=== PATIENT | female | born 1980 | race Caucasian/White ===

== ENCOUNTER 2024-05-18 00:30 | Emergency (ER) | payer OTHER, SELFPAY ==
[2024-05-18 00:34] VITALS: BP 176/114; PULSE 92; RESP 16; TEMP 36.8; O2SAT 94; BMI 35.2
--- NOTE | 2024-05-18 00:40 | ED.GENADULT ---
HPI - General Adult General Chief complaint: Ear/Nose/Throat Problem Stated complaint: R ear infection Time Seen by Provider: 05/18/24 00:40 History of Present Illness HPI narrative: R ear pain, started this afternoon with sinus pressure. as the night has gone on the pain has gotten worse, ringing in ear. feels plugged. 43-year-old woman presenting to the emergency department with concern of potential ear infection. Started to have increased sinus pressure today and increasing pain particularly in her right ear. She has noted some ringing. Feels generally plugged. Not had a fever. No drainage. Not describing sore throat. Related Data Home Medications ?Medication ?Instructions ?Recorded ?Confirmed aspirin 325 mg capsule 325 mg PO DAILY 05/18/24 05/18/24 atorvastatin 80 mg tablet 80 mg PO DAILY 05/18/24 05/18/24 doxepin 10 mg capsule 10 mg PO QPM 05/18/24 05/18/24 fluticasone 500 mcg-salmeterol 50 inhalation 05/18/24 mcg/dose blistr powdr for inhalation levonorgestrel-ethinyl estradiol tab PO 05/18/24 0.1 mg-20 mcg tablet (Vienva) losartan 50 mg tablet 50 mg PO DAILY 05/18/24 05/18/24 montelukast 10 mg tablet 10 mg PO DAILY 05/18/24 05/18/24 propranolol 60 mg capsule,24 60 mg PO DAILY 05/18/24 05/18/24 hr,extended release Previous Rx's ?Medication ?Instructions ?Recorded amoxicillin 875 mg tablet 875 mg PO BID 12 days #24 tabs 05/18/24 Allergies Allergy/AdvReac Type Severity Reaction Status Date / Time azithromycin (From Zithromax) Allergy Verified 05/18/24 00:41 cephalexin (From Keflex) Allergy Verified 05/18/24 00:41 doxycycline Allergy Verified 05/18/24 00:41 guaifenesin Allergy Verified 05/18/24 00:41 Review of Systems Status of ROS: Reports: 6 or more systems reviewed and unremarkable except as noted in History and below [facility] Social History Smoking Status: Never smoker Do you use any of these nicotine containing products: None How often do you have a drink containing alcohol: never AUDIT-C Alcohol total score: 0 Non-prescribed substance use: denies use Exam Narrative: Exam Narrative: Pleasant. NAD. Is congested the nasopharynx. Little sore to palpation maxillary sinuses. Left TM is full; right TM is distended, deformed pink dulled. Oropharynx unremarkable. Breathing easily lungs appear to be clear. No cervical lymphadenopathy. Const: Vital Signs, click to edit/add: Vital Signs - 24 hr 05/18/24 00:34 Temperature 98.3 F Pulse Rate [Pulse Oximeter] 92 Respiratory Rate 16 Blood Pressure [Ri ght Upper Arm] 176/114 H Pulse Oximetry 94 Oxygen Delivery Me thod Room Air Documenting provider has reviewed patient's vital signs: yes Course Vital Signs Vital signs: Initial Vital Signs Temperature 98.3 F 05/18/24 00:34 Temperature Source Temporal Artery Scan 05/18/24 00:34 Pulse Rate 92 05/18/24 00:34 Respiratory Rate 16 05/18/24 00:34 Blood Pressure 176/114 H 05/18/24 00:34 Blood Pressure Mean 134 H 05/18/24 00:34 Blood Pressure Position Supine 05/18/24 00:34 Pulse Oximetry 94 05/18/24 00:34 Oxygen Delivery Method Room Air 05/18/24 00:34 Vital Signs Temperature 98.3 F 05/18/24 00:34 Pulse Rate 92 05/18/24 00:34 Respiratory Rate 16 05/18/24 00:34 Blood Pressure 176/114 H 05/18/24 00:34 Pulse Oximetry 94 05/18/24 00:34 Oxygen Delivery Method Room Air 05/18/24 00:34 Temperature 98.3 F 05/18/24 00:34 Pulse Rate 92 05/18/24 00:34 Respiratory Rate 16 05/18/24 00:34 Blood Pressure 176/114 H 05/18/24 00:34 Pulse Oximetry 94 05/18/24 00:34 Oxygen Delivery Method Room Air 05/18/24 00:34 Medical Decision Making MDM Narrative Medical decision making narrative: Symptoms seem primarily related to congestion due to duration. Would try to treat the nasopharyngeal congestion and improve here drainage before initiating antibiotics to brevity of symptoms. However is having significant amount of pain. This does not appear to be referred throat pain. Coming into the weekend though and if not improving in a couple of days might benefit from than having an antibiotic available. See patient discharge plan Stay well-hydrated. Sleep under the mist of a cool mist humidifier. Neti pot and nasal saline rinses might be helpful. Pseudoephedrine for decongestion, drainage. I like the 12 hour formulation myself. Prednisone and [place] from [facility]. Can take up to 800 mg of ibuprofen per dose or up to 1000 mg of acetaminophen per dose. Remember that each tablet of [place] contains 325 mg of acetaminophen. See if improving in a day or so; if needed amoxicillin waiting at the pharmacy. Discharge Plan Discharge Clinical Impression: Otitis media, Sinusitis, Otalgia, right ear Patient Disposition: Home, Self-Care Condition: Stable Additional Instructions: Stay well-hydrated. Sleep under the mist of a cool mist humidifier. Neti pot and nasal saline rinses might be helpful. Pseudoephedrine for decongestion, drainage. I like the 12 hour formulation myself. Prednisone and [place] from [facility]. Can take up to 800 mg of ibuprofen per dose or up to 1000 mg of acetaminophen per dose. Remember that each tablet of [place] contains 325 mg of acetaminophen. See if improving in a day or so; if needed amoxicillin waiting at the pharmacy. Prescriptions: New amoxicillin 875 mg tablet 875 mg PO BID 12 Days Qty: 24 0RF No Action losartan 50 mg tablet 50 mg PO DAILY atorvastatin 80 mg tablet 80 mg PO DAILY levonorgestrel-ethinyl estrad [Vienva] 0.1-20 mg-mcg tablet PO propranolol 60 mg capsule,extended release 24 hr 60 mg PO DAILY doxepin 10 mg capsule 10 mg PO QPM fluticasone propion-salmeterol 500-50 mcg/dose blister with device INHALATION Patient Comments: [NO ORIGINAL SIG] montelukast 10 mg tablet 10 mg PO DAILY aspirin 325 mg capsule 325 mg PO DAILY Follow Up/Referrals: Betty Amaral PA-C [Phys[facility] [employer]] - Stand Alone Forms: [facility] Info Instructions
== END 2024-05-18 01:12 | disposition home or self-care (01) ==
LOC: ED 00:56
PROVIDERS: Emergency Provider Family Medicine
DX: H66.91 Otitis media, unspecified, right ear (principal)
CPT/HCPCS: 99283